=== PATIENT | male | born 2000 | race Caucasian/White ===

== ENCOUNTER 2022-09-09 04:02 | Day surgery (SDC) | payer OTHER ==
[2022-09-08 08:36] VITALS: BMI 31.4
[2022-09-09] MEDS ORDERED: MIDAZOLAM HCL 2 MG/2 ML SINGLE DOSE VIAL ONE (11:44)
[2022-09-09] MEDS ORDERED: ROCURONIUM BROMIDE 50 MG/5 ML SYRINGE ONE (11:44)
[2022-09-09] MEDS ORDERED: SUCCINYLCHOLINE CHLORIDE 200 MG/10 ML SYRINGE ONE (11:44)
[2022-09-09] MEDS ORDERED: ceFAZolin SODIUM 1 GM VIAL IVPB ONE ×2 (13:05)
[2022-09-09] MEDS ORDERED: OXYMETAZOLINE 0.05% NASAL SOLUTION 15 ML BOTTLE NS ONE (13:10)
[2022-09-09] MEDS ORDERED: LIDOCAINE 1%/EPI 1:100000 (20 ML MULTI DOSE VIAL) IJ ONE ×2 (13:11)
[2022-09-09] MEDS ORDERED: PROPOFOL 20 ML ONE (14:29)
[2022-09-09] MEDS ORDERED: BACITRACIN 15 GM TUBE TOPICAL OINTMENT TP ONE (14:40)
[2022-09-09] MEDS ORDERED: ACETAMINOPHEN 500 MG TABLET (FP) PO PRN (15:01)
[2022-09-09] MEDS ORDERED: ONDANSETRON 4 MG/2 ML VIAL IVPUSH PRN (15:01)
[2022-09-09] MEDS ORDERED: oxyCODONE HCL 5 MG TABLET PO PRN (15:01)
[2022-09-09] MEDS ORDERED: oxyCODONE HCL 5 MG TABLET ONE ×3 (17:21→17:39)
[2022-09-09 18:39] VITALS: BP 140/65; PULSE 88; RESP 18; TEMP 98
== END 2022-09-09 18:10 | disposition home or self-care (01) ==
LOC: JASU-SURG 04:02
PROVIDERS: ATTEND Otolaryngology
PROC: 09TL8ZZ Resection of Nasal Turbinate, Via Natural or Artificial Opening Endoscopic (ICD-10-PCS; 2022-09-09)
PROC: 09BM8ZZ Excision of Nasal Septum, Via Natural or Artificial Opening Endoscopic (ICD-10-PCS; principal; 2022-09-09 12:30)
DX: J34.3 Hypertrophy of nasal turbinates (principal); J34.2 Deviated nasal septum; R09.81 Nasal congestion
CPT/HCPCS: 88304-TC; 94760